=== PATIENT | male | born 1990 | race Caucasian/White ===

== ENCOUNTER 2019-02-21 19:59 | Emergency (ER) | payer OTHER ==
[~2019-02-21] VITALS: Ht 170.2 cm; Wt 90.7 kg
--- NOTE | 2019-02-21 20:45 | PHYS DOC ---
Past Medical History Past Medical History: Other Additional Past Medical Histor: HCV INFECTION, FACIAL BONE FRACTURES Past Surgical History: No Surgical History Alcohol Use: None Drug Use: None Adult General Chief Complaint Chief Complaint: UPPER EXTREMITY INJURY HPI HPI Mr. Bryan is a pleasant 28yo M presents w/ left forearm, wrist, and hand pain with noticeable deformity at midshaft of left forearm that occurred from a fall while walking up stairs when one of his flips flops got caught a "couple of hours ago." Patient describes pain as "throbbing and hot or burning" and began within a minute of fall. Tried ice, which has not helped but "made the pain different." Patient reports no dizziness, lightheadedness, LOC, or head trauma. Review of Systems Review of Systems Constitutional: Denies fever or chills Eyes: Denies redness or eye pain HENT: Denies nasal congestion or sore throat Respiratory: Denies cough or shortness of breath Cardiovascular: Denies chest pain or palpitations GI: Denies abdominal pain, nausea, or vomiting, diarrhea or constipation, hematochezia : Denies dysuria or hematuria Musculoskeletal: Reports left forearm, wrist and hand pain. Denies left elbow and shoulder pain. Integument: Denies rash or skin lesions Neurologic: Reports left hand weakness and numbness. Denies headache. Complete systems were reviewed and found to be within normal limits, except as documented in this note. Family History Family History Father had colon cancer. Current Medications Current Medications Current Medications Medications (Trade) Dose Ordered Sig/Som Start Time Stop Time Status Last Admin Dose Admin Ketorolac Tromethamine (Toradol 30mg Vial) 30 mg 1X ONCE 02/21/19 21:00 02/21/19 21:01 DC 02/21/19 21:05 30 MG Allergies Allergies Allergies Coded Allergies Type Severity Reaction Last Updated Verified No Known Drug Allergies 02/21/19 No Physical Exam Physical Exam Constitutional: Pleasant, well developed, well nourished, no acute distress, non-toxic appearance HENT: Normocephalic, atraumatic, oropharynx moist Eyes: PERRL, EOMI, conjunctiva normal, no discharge Neck: Normal range of motion, no tenderness, supple Cardiovascular: heart regular rate and rhythm w/o gallops, rubs, or murmurs Lungs & Thorax: Bilateral breath sounds clear to auscultation, no wheezing Abdomen: Soft, no tenderness Skin: Warm, dry, no erythema, no rash Back: No tenderness, no CVA tenderness Extremities: Tenderness to left forearm, wrist and hand. Non-pitting edema of left midshaft forearm, wrist, and hand. 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 (See chart for details) [] Dragon Disclaimer Dragon Disclaimer This electronic medical record was generated, in whole or in part, using a voice recognition dictation system. Departure Departure Impression: Primary Impression: Sprain of hand, left Additional Impression: Forearm contusion Disposition: HOME, SELF-CARE Condition: STABLE Referrals: NO PCP (PCP) LI SRINIVASAN MD Patient Instructions: Contusion, [id number], Splint Care, [id number], Sprain, [id number] Additional Instructions: ICE area 20 min on then leave off for next 20 min as needed for next few days. Use over the counter Tylenol and Ibuprofen for pain or discomfort. Problem Qualifiers Primary Impression: Sprain of hand, left Encounter type: initial encounter Qualified Codes: S63.92XA - Sprain of unspecified part of left wrist and hand, initial encounter Additional Impression: Forearm contusion Encounter type: initial encounter Laterality: left Qualified Codes: S50.12XA - Contusion of left forearm, initial encounter TYLER GARRIDO DO Feb 21, 2019 20:45
[2019-02-21] MEDS ORDERED: KETOROLAC 30 MG/ML VIAL. IM ONE (21:00)
[2019-02-21 21:30] VITALS: BP 116/74
--- NOTE | 2019-02-22 08:18 | RAD ---
Exam performed: 2 views left forearm and 3 views left hand. Clinical indication: Left hand pain, status post fall Date of Service: 02/13/2019 Comparison: None available FINDINGS: Two-View radiograph examination of the forearm to include most of the wrist and elbow reveal the osseous structures to be intact and well aligned. No obvious soft tissue swelling or foreign body is detected. AP, lateral and oblique views of the left hand are obtained. There is a small ossific fragment in relation to the fifth metacarpal head with associated soft tissue swelling. There is a small subchondral cyst in the head of fifth metacarpal. No periosteal reaction is seen. There is correlate clinically diffuse soft tissue swelling of the hand. Impression: 1. Small ossific fragment in relation to the head of fifth metatarsal with underlying subchondral cystic change. There is diffuse overlying soft tissue swelling. A small avulsion is suspected. 2. Radiographically normal forearm. Electronically signed by: Fauzia Mittal MD (02/22/2019 8:15 AM) [facility]
== END 2019-02-21 21:55 | disposition home or self-care (01) ==
LOC: ER 19:59 → EEVIPCON 19:59 → ER 21:55
DX: S63.592A Other specified sprain of left wrist, initial encounter (principal); S50.12XA Contusion of left forearm, initial encounter; W10.9XXA Fall (on) (from) unspecified stairs and steps, initial encounter; Y93.01 Activity, walking, marching and hiking; Y92.89 Other specified places as the place of occurrence of the external cause; Y99.8 Other external cause status
CPT/HCPCS: 29125; 73090; 73130; 96372; 99284; J1885